=== PATIENT | male | born 1965 | race Caucasian/White ===

== ENCOUNTER 2022-01-17 11:20 | Emergency (ER) | payer MEDICAID ==
[~2022-01-17] VITALS: Ht 165.1 cm; Wt 91.0 kg
[~2022-01-17 11:20] MED LIST: LISI20TA31 PO; METF-414 PO; OMEP20TA23 PO
[2022-01-17 11:32] VITALS: BP 188/98
[2022-01-17 19:26] LABS: CHLORIDE 102 mEq/L (98-107)
== END 2022-01-17 21:00 | disposition home or self-care (01) ==
LOC: ER 11:40
DX: R05.9 Cough, unspecified (principal); K21.9 Gastro-esophageal reflux disease without esophagitis; E11.9 Type 2 diabetes mellitus without complications; E78.00 Pure hypercholesterolemia, unspecified; I10 Essential (primary) hypertension; R91.1 Solitary pulmonary nodule
CPT/HCPCS: 36415; 71045; 71260; 80048; 99285